=== PATIENT | female | born 1970 | race Hispanic/Latino ===

== ENCOUNTER 2017-07-22 09:56 | Day surgery (SDC) | payer OTHER ==
[2017-07-22] VITALS (17 sets, daily range): BP systolic 102–146; BP diastolic 54–88
[~2017-07-22] VITALS: Ht 152.4 cm; Wt 65.7 kg
[2017-07-22] MEDS ORDERED: TRAM50TA4 PO (10:28)
[2017-07-22] MEDS ORDERED: LACTATED RINGERS 1000ML 1,000 ML IV ONE (10:43)
[2017-07-22] MEDS: CEFAZOLIN SODIUM 1 GM VIAL IVP SCH ×2 (10:45→13:02)
[2017-07-22] MEDS ORDERED: SODIUM CHLORIDE 0.9% 1000ML 1,000 ML IV SCH (10:45)
[2017-07-22] MEDS ORDERED: BUPIVACAINE/PF 0.5% 30ML VIAL ONE (11:41)
[2017-07-22] MEDS ORDERED: MIDAZOLAM HCL 1 MG/ML 2ML VIAL ONE (13:03)
[2017-07-22] MEDS ORDERED: PHENYLEPHRINE HCL 10 MG/ML 1ML VIAL IV ONE (13:03)
[2017-07-22] MEDS ORDERED: NEOSTIGMINE METHYLSULFATE 1MG/ML IV ONE (13:03)
[2017-07-22] MEDS ORDERED: SODIUM CHLORIDE 0.9% 10 ML VIAL ONE (13:03)
[2017-07-22] MEDS ORDERED: PROPOFOL 10 MG/ML 20ML VIAL IV ONE (13:03)
[2017-07-22] MEDS ORDERED: GLYCOPYRROLATE 0.2 MG/ML 5 ML VIAL ONE (13:03)
[2017-07-22] MEDS ORDERED: ROCURONIUM BROMIDE 10MG/1ML 5ML VL ONE (13:03)
[2017-07-22] MEDS ORDERED: FENTANYL CITRATE PF 50 MCG/1 ML 2ML VIAL ONE ×2 (13:35→14:39)
[2017-07-22] MEDS ORDERED: MEPERIDINE-PF 25 MG/ML SYG ONE ×2 (14:39→14:53)
[2017-07-22] MEDS ORDERED: PROMETHAZINE HCL 25 MG/ML 1ML AMPULE IM ONE (14:53)
== END 2017-07-22 17:05 | disposition home or self-care (01) ==
LOC: DAH 09:56
PROVIDERS: ATTEND Surgery
DX: K81.0 Acute cholecystitis (principal); Z79.899 Other long term (current) drug therapy; Z98.890 Other specified postprocedural states
CPT/HCPCS: 36415; 47562; 84703; 88304; A4218; A4450; A4649 ×4; A4930; C1769 ×4; J0690; J2175 ×2; J2250; J2370; J2550; J2704; J2710; J3010 ×2; J3490 ×3; J7030; J7120